=== PATIENT | male | born 1950 | race African-American/Black ===

== ENCOUNTER 2019-07-08 15:39 | Emergency (ER) | payer MEDICARE ==
[~2019-07-08] VITALS: Ht 175.3 cm; Wt 90.0 kg
[~2019-07-08 15:39] MED LIST: DOCU-150 PO; FERR-63 PO; GABA-529 PO; HUM10VIA8 SQ; METH10OR11 PO
[2019-07-08 15:47] VITALS: BP 157/86
[2019-07-08] MEDS ORDERED: TRAMADOL 50MG TABLET PO ONE (16:45)
== END 2019-07-08 18:05 | disposition home or self-care (01) ==
LOC: ER 15:39
DX: S22.31XA Fracture of one rib, right side, initial encounter for closed fracture (principal); S80.11XA Contusion of right lower leg, initial encounter; I10 Essential (primary) hypertension; E11.9 Type 2 diabetes mellitus without complications; E03.9 Hypothyroidism, unspecified; V79.88XA Bus occupant (driver) (passenger) injured in other specified transport accidents, initial encounter; Y93.89 Activity, other specified; Y92.410 Unspecified street and highway as the place of occurrence of the external cause; Z79.4 Long term (current) use of insulin; Z90.49 Acquired absence of other specified parts of digestive tract; Z89.612 Acquired absence of left leg above knee
CPT/HCPCS: 71101; 73502; 73590; 99284